=== PATIENT | female | born 1985 | race Caucasian/White ===

== ENCOUNTER 2022-10-07 11:40 | Emergency (ER) | payer OTHER, SELFPAY ==
--- NOTE | ~2022-10-07 | CT_ITS ---
EXAMINATION: CT abdomen pelvis wo con DATE: 10/07/2022 12:35 INDICATION: Left flank pain, nausea and vomiting TECHNIQUE: Computed tomography (CT) of the abdomen and pelvis was performed without intravenous contr ast. Automated exposure control and iterative reconstruction technique were employed. The dose-length product was 778.25 mGy-cm. COMPARISON: None FINDINGS: Lung bases are clear. Heart size is normal. Small sliding-type hiatal hernia. No pericardial or pleur al effusion. Liver, gallbladder, spleen, pancreas and bilateral adrenal glands are normal. 5 mm stone at an upper pole calyx of the right kidney and 2 mm stone at a lower pole calyx of the right kidney. There is mild left hydroureteronephrosis which extends into the deep pelvis. 2 mm high-grade at leas t partially obstructing stone at the left ureterovesicular junction. There are multiple <3 mm phlebol iths in the pelvis. Decompressed bladder, anteverted uterus and left adnexa are normal. 2.9 cm right adnexal cyst. No free intraperitoneal gas or fluid. Bowels including appendix are normal. No patholog ically enlarged abdominal or pelvic lymphadenopathy. Mild lumbar levocurvature. Chronic appearing mil d anterior wedging at T11. Moderate spondylosis at T11-T12. Otherwise mild lumbar and lower thoracic spondylosis. IMPRESSION: 1. Nephrolithiasis with a couple nonobstructing right renal stones and a likely partially obstructing 2 mm stone at the left ureterovesicular junction with mild left hydroureteronephrosis. 2. Small sliding-type hiatal hernia. Reviewed, dictated and finalized at location A. IMPRESSION: 1. Nephrolithiasis with a couple nonobstructing right renal stones and a likely partially obstructing 2 mm stone at the left ureterovesicular junction with mi ld left hydroureteronephrosis. 2. Small sliding-type hiatal hernia.
[2022-10-07 11:43] VITALS: BP 142/85; PULSE 69; RESP 20; TEMP 36.7; O2SAT 100; O2SAT 99
--- NOTE | 2022-10-07 11:50 | ED.FEMALEGU ---
HPI - Female Genitourinary General Chief complaint: Back Pain/Injury Stated complaint: Kidney Stone Time Seen by Provider: 10/07/22 11:49 Source: patient Mode of arrival: ambulatory Limitations: no limitations History of Present Illness HPI Narrative: 37-year-old female with a history of right kidney stones X 2 , 5 years ago presents to the ER with -- left flank pain which started 3 hours ago. Pain radiates to the left groin. -- Dysuria and passing small amounts of urine. No hematuria. No fever or chills MD elicited complaint: dysuria and flank pain Pertinent past history: other ( kidney stones) Onset (ago): hour(s) ( 3 hours ago) Location of symptoms: flank Severity: severe Female Urogenital Radiation: LLQ Severity scale (1-10): 8 Quality of pain: cramping Vaginal discharge: none Vaginal bleeding: none Urinary symptoms: Dysuria, Urgency and Frequency Exacerbating factors: none Relieving factors: none Associated symptoms: denies other symptoms Treatment prior to arrival: none Patient : No Related Data Allergies Allergy/AdvReac Type Severity Reaction Status Date / Time No Known Allergies Allergy Verified 10/07/22 11:54 Review of Systems Review of Systems: All systems reviewed & are unremarkable except as noted in HPI and below ROS unobtainable: Yes unobtainable due to endotracheal tube Constitutional: Constitutional: Reports as per HPI and Reports no additional constitutional complaints Eyes: Eyes: Reports as per HPI and Reports no additional eye complaints ENT: Reports system reviewed and no additional complaints, except as documented and Reports as per HPI Cardiovascular: Cardiovascular: Reports as per HPI and Reports no additional cardiovascular complaints Respiratory: Respiratory: Reports as per HPI and Reports no additional respiratory complaints Gastrointestinal: Gastrointestinal: Reports as per HPI and Reports no additional gastrointestinal complaints Genitourinary: Genitourinary: Reports dysuria and Reports flank pain Musculoskeletal: Musculoskeletal: Reports no additional musculoskeletal complaints and Reports as per HPI Integumentary/Breasts: Skin/Breast: Reports system reviewed and no additional complaints, except as docu and Reports as per HPI Neurologic: Reports system reviewed and no additional complaints, except as documented and Reports as per HPI Psychiatric: Psychiatric: Reports no additional psychiatric complaints and Reports as per HPI Endocrine: Endocrine: Reports no additional endocrine complaints and Reports as per HPI Hematologic/Lymphatic: Hematologic/Lymphatic: Reports no additional hematologic/lymphatic complaints and Reports as per HPI Allergic/Immunologic: Allergic/Immunologic: Reports no additional allergic/immunologic complaints and Reports as per HPI COUNTS INCLUDE 234 BEDS AT THE [facility] Past Medical History Medical History (Updated 10/07/22 @ 13:25 by Alvaro Melissa MD) Kidney stones Exam Const: General: ill appearing Orientation/consciousness: patient oriented x3 Limitations: no limitations HENMT: Head: normal to inspection Ears: external ears normal Face/Nose/Sinus: Normal external nose present Face and sinus: normal facial exam Throat: posterior oropharynx normal Eyes: Conjunctivae: conjunctivae normal Pupils: Equal, round and reactive pupils present EOM: EOMs intact bilaterally Direct Ophthalmoscopy: no photophobia Neck: Neck: normal visual inspection and no lymphadenopathy Chest: Chest palpation & inspection: normal inspection of the chest Resp: Effort & Inspection: normal respiratory effort Auscultation: clear to auscultation bilaterally Cardio: Rate: regular rate Rhythm: regular rhythm GI: GI Palp: Yes Soft to palpation Auscultation: normal bowel sounds : General: Yes CVA tenderness Other: left flank and left CV angle tenderness Back/Spine/Pelvis: Back: CVA tenderness Skin: General skin exam: normal color Rashes: no rashes Wounds: no woun
[2022-10-07 12:00] VITALS: BP 129/79; PULSE 68; RESP 17; O2SAT 100
[2022-10-07] MEDS: KETOROLAC 30 MG/ML VIAL (*BKC) IV PUSH (12:01)
[2022-10-07] MEDS: ONDANSETRON INJ 4 MG/2 ML VIAL IV PUSH (12:01)
[2022-10-07 12:13] LABS: Basophils Absolute Auto 0.08 K/mm3 (0.00-0.10); Basophils Percent Auto 0.5 % (0.0-1.0); Eosinophils Absolute Auto 0.17 K/mm3 (0.02-0.50); Hematocrit 42.4 % (35.0-49.0); Hemoglobin 14.6 g/dL (12.0-15.0); Immature Granulocyte Absolute 0.06 K/mm3 (0.00-0.00); Immature Granulocyte Percent A 0.3 % (0.0-0.0); Lymphocytes Absolute Auto 2.48 K/mm3 (1.10-4.50); Lymphocytes Percent Auto 14.1 % (18.0-42.0); Mean Corpuscular HGB Conc 34.4 g/dL (32.0-36.0); Mean Corpuscular Hemoglobin 31.3 pg (27.0-31.0); Monocytes Absolute Auto 0.68 K/mm3 (0.10-0.90); Monocytes Percent Auto 3.9 % (2.0-11.0); Neutrophils Absolute Auto 14.1 K/mm3 (1.7-7.2); Neutrophils Percent Auto 80.2 % (50.0-70.0); Platelet Count Result 295 K/mm3 (150-420); Red Blood Count 4.66 M/mm3 (4.20-5.40); White Blood Count 17.5 K/mm3 (4.8-10.8)
[2022-10-07 12:14] LABS: Appearance Urine Slightly Cloudy (Clear); Bilirubin Urine Negative (Negative); Blood Urine 3+ (Negative); Color Urine Yellow (Yellow); Glucose Urine UA Negative (Negative); Ketones Urine 1+ (Negative); Leukocyte Esterase Ur Negative LEU/UL (Negative); Nitrate Urine Negative (Negative); Protein Urine 1+ (Negative); Specific Grav Ur >= 1.030 (1.010-1.020); Urobilinogen Urine 0.2 mg/dL (0.2-1.0); pH Urine 5.5 (5.0-8.0)
[2022-10-07 12:21] LABS: Pregnancy On Board Control Positive; Urine Pregnancy Test Negative
[2022-10-07 12:22] LABS: Add Urine Microscopic? YES; Bacteria Urine 2+ /hpf; Squamous Epithelial Cell Urine Moderate /hpf (Few); WBC Urine 0-3 /hpf (0-3)
[2022-10-07 12:27] LABS: Alanine Aminotransferase 31 U/L (14-59); Albumin Level 3.7 g/dL (3.4-5.0); Alkaline Phosphatase 69 U/L (46-116); Anion Gap 16 mmol/L (8-16); Aspartate Amino Transferase 22 U/L (15-37); Bilirubin,Total 0.3 mg/dL (0.00-1.00); Blood Urea Nitrogen 12 mg/dL (7-18); Calcium 8.8 mg/dL (8.5-10.1); Carbon Dioxide 20 mmol/L (21-32); Chloride 104 mmol/L (98-108); Estimated CRCL calculation 73 ml/min; Estimated Glomerular Filt Rate 57; Glucose 160 mg/dL (70-99); Osmolality Calculated 292 mOsm/kg (285-295); Potassium 3.4 mmol/L (3.5-5.1); Sodium 140 mmol/L (136-145); Total Protein 7.9 g/dL (6.4-8.2)
[2022-10-07 12:28] LABS: Lipase 32 U/L (16-77)
[2022-10-07 12:29] LABS: Lactic Acid Reflex 4.4 mmol/L (0.4-2.0)
[2022-10-07 12:30] VITALS: BP 130/69; PULSE 67; RESP 18; O2SAT 100
[2022-10-07] MEDS: LACTATED RINGERS 1,000 ML 999 ML IV CONT (13:08)
[2022-10-07] MEDS: TAMSULOSIN HCL 0.4 MG CAPSULE PO (13:08)
[2022-10-07 14:00] VITALS: BP 131/71; PULSE 67; RESP 17; O2SAT 98
[2022-10-07 14:13] VITALS: BP 126/79; PULSE 68; RESP 17; TEMP 36.7; O2SAT 100
[2022-10-07 15:10] LABS: Reflex Lactic Acid Yes or No Add Lactic
== END 2022-10-07 14:13 | disposition home or self-care (01) ==
PROVIDERS: Emergency Provider Internal Medicine Critical Care Medicine; PCP Hospitalist
DX: N20.0 Calculus of kidney (principal); N28.9 Disorder of kidney and ureter, unspecified
CPT/HCPCS: 36415; 74176; 80053; 81001; 81025; 83605; 83690; 85025; 96361; 96374; 96375; 99284; A9270; J1885; J2405; J7120